=== PATIENT | male | born 1995 | race American Indian/Alaskan Native ===

== ENCOUNTER 2017-03-08 10:23 | Emergency (ER) | payer SELFPAY ==
--- NOTE | 2017-03-08 13:26 | Emergency Department Report ---
ED ENT HPI - General Chief complaint: Dental/Oral Stated complaint: TOOTHACHE Source: patient Mode of arrival: Ambulatory Limitations: No Limitations - History of Present Illness Initial comments: 21 y/o M with significant PMHX presents with a toothache since Sunday. Pt states that he has ongoing problems with his wisdom teeth for a while now, but lost his insurance and was not able to have them removed. He states that he will gain back his insurance in April and will get them pulled then. Pt reports to 12/04 aching pain. He denies any fever, chills, pus, or oozing from the site. He denies any facial swelling, numbness, respiratory distress. No chest pain or SOB reported. Pt states that he has been taking advil at home with mild relief. He states that he feels the area is infected as he felt there was an abscess of his wisdom tooth of the R lower teeth. NKDA. COLIN complaint: tooth pain, other (reports to pain and mild swelling of the gum) -: days(s) (3 days) Location: tooth # (wisdom tooth of the R lower teeth) 1 - reports pain and mild swelling at this site Severity scale (0 -10): 7 Quality: aching Consistency: constant Improves with: none Worsens with: none Context- Dental: history of dental caries, poor dental care Associated Symptoms: gum swelling (mild) - Related Data Previous Rx's Medication Instructions Recorded Last Taken Type Amoxicillin/Potassium Clav 1 each PO BID #20 tablet 03/08/17 Unknown Rx [Augmentin 875-125 Tablet] Ibuprofen [Motrin 800 MG tab] 800 mg PO Q8HR PRN #15 tablet 03/08/17 Unknown Rx Allergies Allergy/AdvReac Type Severity Reaction Status Date / Time No Known Allergies Allergy Unverified 03/08/17 11:27 ED Dental HPI - General Chief complaint: Dental/Oral Stated complaint: TOOTHACHE Source: patient Mode of arrival: Ambulatory Limitations: No Limitations - Related Data Previous Rx's Medication Instructions Recorded Last Taken Type Amoxicillin/Potassium Clav 1 each PO BID #20 tablet 03/08/17 Unknown Rx [Augmentin 875-125 Tablet] Ibuprofen [Motrin 800 MG tab] 800 mg PO Q8HR PRN #15 tablet 03/08/17 Unknown Rx Allergies Allergy/AdvReac Type Severity Reaction Status Date / Time No Known Allergies Allergy Unverified 03/08/17 11:27 ED Review of Systems ROS: Stated complaint: TOOTHACHE Other details as noted in HPI Constitutional: denies: chills, fever Eyes: denies: eye pain, eye discharge, vision change ENT: dental pain Respiratory: denies: cough, shortness of breath, wheezing Cardiovascular: denies: chest pain, palpitations Gastrointestinal: denies: abdominal pain, nausea, diarrhea Skin: denies: rash, lesions Neurological: denies: headache, weakness, paresthesias Psychiatric: denies: anxiety, depression ED Past Medical Hx - Past Medical History Previous Medical History?: No - Surgical History Past Surgical History?: No - Social History Smoking Status: Never Smoker Substance Use Type: Marijuana - Medications Home Medications: Home Medications Medication Instructions Recorded Confirmed Last Taken Type Amoxicillin/Potassium Clav 1 each PO BID #20 tablet 03/08/17 Unknown Rx [Augmentin 875-125 Tablet] Ibuprofen [Motrin 800 MG tab] 800 mg PO Q8HR PRN #15 tablet 03/08/17 Unknown Rx ED Physical Exam - General Limitations: No Limitations General appearance: alert, in no apparent distress - Head Head exam: Present: atraumatic, normocephalic - Eye Eye exam: Present: normal appearance - ENT ENT exam: Present: other (there is TTP at the wisdom tooth on the R lower teeth , there is no evidence of an obvious abscess at this time, however, it appears one may be forming, there is no pus oozing or drainage noted at the site, mild redness, there is diffuse dental caries noted of the mouth, the airway is patent ) - Neck Neck exam: Present: normal inspection, other (there is no muffled voice) - Respiratory Respiratory exam: Present: normal lung sounds bilaterally. Absent: respiratory distress - Cardiovascular Cardiovascular Exam: Present: regular rate, normal rhythm. Absent: systolic murmur, diastolic murmur, rubs, gallop - Neurological Exam Neurological exam: Present: alert, oriented X3 - Psychiatric Psychiatric exam: Present: normal affect, normal mood - Skin Skin exam: Present: warm, dry, intact, normal color, other (there is no evidence of facial swelling). Absent: rash ED Course Vital Signs 03/08/17 03/08/17 03/08/17 11:24 11:28 13:45 Temperature 98.7 F 98.7 F Pulse Rate 66 68 Respiratory 18 18 18 Rate Blood Pressure 125/73 125/73 117/76 O2 Sat by Pulse 100 100 Oximetry ED Medical Decision Making - Medical Decision Making There was no evidence of an obvious abscess noted on examination, but appears that there may be one developing. As the patient has limited access to dental care, I have referred him to [facility]. I have also given him Augmentin BID for the next 10 days and Ibuprofen 800 mg TID as needed for the pain. Pt was also given Ibuprofen 800 mg here in the ED prior to discharge. Pt was educated on emergent symptoms and told to return to the ED immediately if he starts to have difficulty breathing, muffled voice, or facial swelling. He was also instructed to follow-up with the dentist [place]. Pt was discharged in stable condition, alert and oriented, in no resp distress, speaking in full sentences. Pt was hemodynamically and neurovasculary intact. Critical care attestation.: If time is entered above; I have spent that time in minutes in the direct care of this critically ill patient, excluding procedure time. ED Disposition Clinical Impression: Dental abscess, Tooth pain Disposition: - TO HOME OR SELFCARE Is pt being admited?: No Does the pt Need Aspirin: No Condition: Stable Instructions: Dental Abscess (ED), Toothache (ED) Additional Instructions: Please complete your full course of antibiotic as directed to you in the ED. Please take the ibuprofen as needed for the pain. Please follow-up with the dentist within the next 3-4 days. PCP follow-up within 1 week. Patient encouraged to try warm compresses to the site. Please return to the ER immediately if your symptoms progress or worsen such as: fever, chill, respiratory distress, or closed airway. Prescriptions: Amoxicillin/Potassium Clav [Augmentin 875-125 Tablet] 1 each PO BID #20 tablet Ibuprofen [Motrin 800 MG tab] 800 mg PO Q8HR PRN #15 tablet PRN Reason: pain Referrals: [facility] [Outside] - 3-[address] [facility] [place] [Outside] - 3-5 Days [facility] [Outside] - 3-5 Days [facility] [Primary Care Provider] - 3-5 Days Forms: Work/School Release Form(ED)
[2017-03-08] MEDS ORDERED: MOTRIN PO ONE (13:29)
[2017-03-08 13:49] VITALS: BP 117/76
== END 2017-03-08 13:49 | disposition home or self-care (01) ==
LOC: ED 10:23
DX: K04.7 Periapical abscess without sinus (principal); F12.10 Cannabis abuse, uncomplicated
CPT/HCPCS: 99282